=== PATIENT | female | born 1990 | race Caucasian/White ===

== ENCOUNTER 2017-06-26 08:55 | Emergency (ER) | payer OTHER ==
[~2017-06-26] VITALS: Ht 160 cm; Wt 54.4 kg
[~2017-06-26 08:55] MED LIST: DOXY50CA2 PO
[2017-06-26 09:00] VITALS: BP 111/79
== END 2017-06-26 10:06 | disposition home or self-care (01) ==
LOC: ER 09:06
DX: N63.10 Unspecified lump in the right breast, unspecified quadrant (principal)
CPT/HCPCS: 71010-TC; 84703-TC; A4606; Z7610

== ENCOUNTER 2018-04-30 12:25 | Emergency (ER) | payer OTHER ==
[~2018-04-30] VITALS: Ht 165.1 cm; Wt 60.8 kg
[2018-04-30 12:58] LABS: APPEARANCE,URINE Clear (CLEAR); BILIRUBIN,URINE Negative (NEGATIVE); BLOOD, URINE Large Ery/uL (NEGATIVE); COLOR,URINE Yellow (YELLOW); KETONES,URINE Trace (NEGATIVE); LEUKOCYTE ESTERASE ,URINE Negative (NEGATIVE); NITRITE, URINE Negative (NEGATIVE); PH,URINE 6.5 (5.0-8.0); PROTEIN,URINE 30 mg/dl (NEGATIVE); UGLUCOSE Negative (NEGATIVE)
--- NOTE | 2018-04-30 13:01 | NUR ---
urine collected sent to lab
[2018-04-30 13:24] LABS: BASOPHILS # (AUTO) 0.1 /CMM (0.0-0.2); BASOPHILS % (AUTO) 0.7 % (0.0-2.0); EOSINOPHILS % (AUTO) 0.6 % (0.0-6.0); HEMATOCRIT 39 % (33-45); HEMOGLOBIN 13.2 g/dL (11.5-14.8); LYMPHOCYTES # (AUTO) 1.6 /CMM (0.8-4.8); LYMPHOCYTES % (AUTO) 22.2 % (20.0-44.0); MEAN CORPUSCULAR HEMOGLOBIN 28 PG (26.0-33.0); MEAN CORPUSCULAR HGB CONC 34 g/dl (31.0-36.0); MEAN CORPUSCULAR VOLUME 84 fL (82-100); MONOCYTES # (AUTO) 0.4 /CMM (0.1-1.30); MONOCYTES % (AUTO) 5.3 % (2.0-12.0); NEUTROPHILS # (AUTO) 5.3 /CMM (1.8-8.9); NEUTROPHILS % (AUTO) 71.2 % (43.0-81.0); PLATELET COUNT (AUTO) 200 /CMM (150-450); RDW COEFFICIENT OF VARIATION 12.6 (11.5-15.0); RED BLOOD CELL COUNT(AUTO) 4.68 MIL/uL (4.0-5.2); WHITE BLOOD COUNT (AUTO) 7.4 K/uL (4.3-11.0)
[2018-04-30 13:28] LABS: BACTERIA,URINE Moderate /HPF (None Seen); SQUAMOUS EPITHELIAL CELL,UR Moderate /HPF (None Seen)
[2018-04-30 14:22] VITALS: BP 129/89
--- NOTE | 2018-04-30 14:25 | NUR ---
Patient discharged to home in stable condition. Written and verbal after care instructions given. Patient verbalizes understanding of instruction.
== END 2018-04-30 14:24 | disposition home or self-care (01) ==
LOC: ER 12:27
DX: O20.8 Other hemorrhage in early pregnancy (principal); Z3A.01 Less than 8 weeks gestation of pregnancy
CPT/HCPCS: 36415; 76856; 81001; 84702; 85025; 86850; 87086; 99285; A4606; Z7610; 81000-TC

== ENCOUNTER 2019-08-08 21:45 | Emergency (ER) | payer OTHER ==
[~2019-08-08] VITALS: Ht 160 cm; Wt 60.3 kg
--- NOTE | 2019-08-08 23:08 | NUR ---
BIBS FROM HOME TO ER BED9. AAOX4. NO RESP DISTRESS NOTED. AMBULATORY. C/O HEADACHE X 1 DAY. PT REPORTS THAT PAIN STARTED YESTERDAY. REPORTS HX OF MIGRAINE AND STATES THAT THIS IS WORST THAN USUAL. LIGHT AGGREVATES THE PAIN. PAIN IS PRESENT ON THE FRONTAL LOBE. TOOK TYLENOL BUT NO RELIEF. AWAITING MD FOR EVAL.
[2019-08-08] MEDS ORDERED: KETOROLAC TROMETHAMINE 15 MG/ML VIAL ONE (23:46)
[2019-08-08] MEDS ORDERED: diphenhydrAMINE HCL 50 MG/ML VIAL ONE (23:46)
[2019-08-09] MEDS ORDERED: KETOROLAC TROMETHAMINE INJ 30 MG/ML VIAL IV ONE
[2019-08-09] MEDS ORDERED: IV NS 0.9% 1,000 ML BAG IV ONE
[2019-08-09] MEDS ORDERED: diphenhydrAMINE HCL 50 MG/ML VIAL IV ONE
[2019-08-09 00:29] VITALS: BP 117/70
--- NOTE | 2019-08-09 00:29 | NUR ---
Patient discharged to home in stable condition. Written and verbal after care instructions given. Patient verbalizes understanding of instruction.IV removed. Catheter intact and site benign. Pressure and 4x4 applied to site. No bleeding noted. Pt ambulatory with a steady gait
== END 2019-08-09 00:29 | disposition home or self-care (01) ==
LOC: ER 21:47
DX: G43.909 Migraine, unspecified, not intractable, without status migrainosus (principal)
CPT/HCPCS: 96374; 99284; J1200; J1885; J7030 ×2

== ENCOUNTER 2019-11-03 20:19 | Emergency (ER) | payer MEDICAID ==
--- NOTE | 2019-11-03 20:26 | NUR ---
CALLED FOR TRIAGE, NO ANSWER.
--- NOTE | 2019-11-03 20:30 | NUR ---
CALLED FOR TRIAGE, NO ANSWER.
--- NOTE | 2019-11-03 20:34 | NUR ---
CALLED FOR RTIAGE, NO ANSWER.
--- NOTE | 2019-11-03 21:09 | NUR ---
PT NOT IN WAITING ROOM FOR TRIAGE, NO ANSWER.
== END 2019-11-03 21:11 | disposition home or self-care (01) ==
LOC: ER 20:21
DX: R51 Headache (principal); Z53.21 Procedure and treatment not carried out due to patient leaving prior to being seen by health care provider

== ENCOUNTER 2020-10-27 11:45 | Emergency (ER) | payer MEDICAID, OTHER ==
[~2020-10-27] VITALS: Ht 160 cm; Wt 59.0 kg
[2020-10-27 11:56] VITALS: BP 125/85
[2020-10-27] MEDS ORDERED: GABA300C PO (12:08)
== END 2020-10-27 12:16 | disposition home or self-care (01) ==
LOC: ER 11:52
DX: G50.0 Trigeminal neuralgia (principal); G43.909 Migraine, unspecified, not intractable, without status migrainosus; Z79.899 Other long term (current) drug therapy

== ENCOUNTER 2020-11-13 12:54 | Emergency (ER) | payer OTHER ==
[~2020-11-13] VITALS: Ht 160 cm; Wt 59.0 kg
[~2020-11-13 12:54] MED LIST changes: +GABA300C PO
[2020-11-13] MEDS ORDERED: METOCLOPRAMIDE HCL 10 MG/2 ML VIAL ONE (13:07)
[2020-11-13] MEDS ORDERED: KETOROLAC TROMETHAMINE INJ 30 MG/ML VIAL ONE (13:07)
[2020-11-13] MEDS ORDERED: diphenhydrAMINE HCL 50 MG/ML VIAL ONE (13:07)
--- NOTE | 2020-11-13 13:22 | NUR ---
Patient came in to the er c/o headache x 2 weeks, Hx migraine. On room air, breathing evenly and unlabored. connected to the monitor and pulse ox, kept comfortable, will continue to monitor accordingly.
[2020-11-13] MEDS ORDERED: KETOROLAC TROMETHAMINE INJ 30 MG/ML VIAL IV ONE (13:30)
[2020-11-13] MEDS ORDERED: diphenhydrAMINE HCL 50 MG/ML VIAL IV ONE (13:30)
[2020-11-13] MEDS ORDERED: IV NS 0.9% 1,000 ML BAG IV ONE (13:30)
[2020-11-13] MEDS ORDERED: METOCLOPRAMIDE HCL 10 MG/2 ML VIAL IV ONE (13:30)
[2020-11-13 14:14] VITALS: BP 110/61
--- NOTE | 2020-11-13 14:14 | NUR ---
Patient discharged to home in stable condition. Written and verbal after care instructions given. Patient verbalizes understanding of instruction.IV removed. Catheter intact and site benign. Pressure and 4x4 applied to site. No bleeding noted.
== END 2020-11-13 14:14 | disposition home or self-care (01) ==
LOC: ER 12:54
DX: G43.909 Migraine, unspecified, not intractable, without status migrainosus (principal); Z79.899 Other long term (current) drug therapy
CPT/HCPCS: 84703; 96361; 96374; 96375; 99284; J1200; J2765; J7030; J1885